=== PATIENT | female | born 1955 | race Caucasian/White ===

== ENCOUNTER → 2016-11-28 | Outpatient (CLI) | payer BC ==
--- NOTE | 2016-11-30 08:09 | MM ---
Reason for exam: screening (asymptomatic). Last mammogram was performed 3 years and 4 months ago. History: Patient is postmenopausal and is nulliparous. Took hormonal contraceptives for 35 years. Physical Findings: A clinical breast exam by your physician is recommended on an annual basis and results should be correlated with mammographic findings. MG Screening Mammo w CAD Bilateral CC and MLO view(s) were taken. Prior study comparison: July 30, 2013, bilateral MG screening mammo w CAD. July 24, 2012, bilateral digital screening mammo w/CAD. The breast tissue is extremely dense which could obscure a lesion on mammography. No significant changes when compared with prior studies. ASSESSMENT: Benign, BI-RAD 2 RECOMMENDATION: Routine screening mammogram of both breasts in 1 year.
== END | disposition home or self-care (01) ==
LOC: RADMAMWWP 09:55
PROVIDERS: ATTEND Family Medicine
DX: Z12.31 Encounter for screening mammogram for malignant neoplasm of breast (principal)

== ENCOUNTER → 2018-01-08 | Outpatient (CLI) | payer BC ==
--- NOTE | 2018-01-10 12:08 | MM ---
Reason for exam: screening (asymptomatic). Last mammogram was performed 1 year and 1 month ago. History: Patient is postmenopausal and is nulliparous. Took hormonal contraceptives for 35 years. Physical Findings: A clinical breast exam by your physician is recommended on an annual basis and results should be correlated with mammographic findings. MG Screening Mammo w CAD Bilateral CC and MLO view(s) were taken. Prior study comparison: November 28, 2016, bilateral MG screening mammo w CAD. July 30, 2013, bilateral MG screening mammo w CAD. The breast tissue is extremely dense which could obscure a lesion on mammography. No suspicious abnormality. No significant changes when compared with prior studies. ASSESSMENT: Negative, BI-RAD 1 RECOMMENDATION: Routine screening mammogram of both breasts in 1 year.
== END ==
LOC: RADMAMWWP 11:10
PROVIDERS: ATTEND Family Medicine
DX: Z12.31 Encounter for screening mammogram for malignant neoplasm of breast (principal)
CPT/HCPCS: 77067

== ENCOUNTER → 2023-03-15 | Outpatient (CLI) | payer MEDICARE ==
--- NOTE | 2023-03-15 12:38 | BD ---
EXAMINATION TYPE: Axial Bone Density DATE OF EXAM: 03/15/2023 CLINICAL HISTORY: 67 years old Female. ICD-10 CODE: M89.8X9 OTHER BONE DISORDERS Height: 61.5 Weight: 152 FRAX RISK QUESTIONS: History of Fracture in Adulthood: no Secondary Osteoporosis: no Current Tobacco Use: yes RISK FACTORS HISTORY OF: Surgery to Spine/Hip(right/left)/Wrist (right/left): no MEDICATIONS: no EXAM MEASUREMENTS: Bone mineral densitometry was performed using the [employer] System. Bone mineral density as measured about the Lumbar spine is: ----- L1-L4(G/cm2): 0.923 T Score Values are as follows: ----- L1: -2.3 ----- L2: -2.6 ----- L3: -2.3 ----- L4: -1.6 ----- L1-L4: -2.1 Z Score Values are as follows: ----- L1: -0.8 ----- L2: -1.1 ----- L3: -0.9 ----- L4: -0.1 ----- L1-L4: -0.7 Bone mineral density has: Decreased -9.2% since study of: 10/17/2005 Bone mineral density about the R hip (g/cm2): 0.754 Bone mineral density about the L hip (g/cm2): 0.763 T Score values are as follows: -----R Neck: -2.7 -----L Neck: -2.7 -----R Total: -2.0 -----L Total: -1.9 Z Score values are as follows: -----R Neck: -1.3 -----L Neck: -1.3 -----R Total: -0.8 -----L Total: -0.8 Bone mineral density has: Decreased -1.6% since study of: 11/06/2012 FRAX%s: The graph provided illustrates a 16.7% chance for a major osteoporotic fx and a 6.5% chance f or the hips probability for fx in 10 years time. IMPRESSION: Osteopenia (T Score between -2.5 and -1). There is slightly increased risk of fracture and the patient may be considered for treatment. Re-Screen 2-5 years. NOTE: T-SCORE=SD OF THE YOUNG ADULT MEAN.
--- NOTE | 2023-03-19 10:09 | MM ---
Reason for Exam: Screening (asymptomatic). Last mammogram was performed 5 year(s) and 3 month(s) ago. Patient History: Menarche at age 13. Patient has no children. Postmenopausal. Hormonal Contraceptives for 35 years until age 31. Risk Values: Aleshia 5 year model risk: 1.9%. NCI Lifetime model risk: 6.7%. Prior Study Comparison: 07/30/2013 Bilateral Screening Mammogram, [facility]. 11/28/2016 Bilateral Screening Mammogram, [facility]. 01/08/2018 Bilateral Screening Mammogram, [facility]. Tissue Density: The breast tissue is heterogeneously dense. This may lower the sensitivity of mammography. Findings: Analyzed By CAD. Asymmetric nodular density upper outer right breast 7 cm from the nipple. Additional views are recommended. No left-sided breast nodules seen. No suspicious calcifications evident. Overall Assessment: Incomplete: need additional imaging evaluation, BI-RAD 0 Management: Diagnostic Mammogram of the right breast. . Patient should continue monthly self-breast exams. A clinical breast exam by your physician is recommended on an annual basis. This exam should not preclude additional follow-up of suspicious palpable abnormalities. Note on Aleshia scores and lifetime risk: 1. A Aleshia score greater than 3% is considered moderate risk. If this is the case, consider specialist referral to assess eligibility for a risk reducing agent. 2. If overall lifetime risk for the development of breast cancer is 20% or higher, the patient may qualify for future screening with alternating mammogram and breast MRI. Electronically signed and approved by: Yuan Barth M.D. Radiologis
== END | disposition home or self-care (01) ==
LOC: RADMAMWWP 09:41
PROVIDERS: ATTEND Family Medicine
DX: Z12.31 Encounter for screening mammogram for malignant neoplasm of breast (principal); M85.88 Other specified disorders of bone density and structure, other site; M89.8X9 Other specified disorders of bone, unspecified site; Z78.0 Asymptomatic menopausal state; M81.0 Age-related osteoporosis without current pathological fracture
CPT/HCPCS: 77067; 77080

== ENCOUNTER → 2023-04-09 | Outpatient (CLI) | payer MEDICARE ==
--- NOTE | 2023-04-09 10:44 | MM ---
Reason for Exam: Additional evaluation requested from abnormal screening. Last screening mammogram was performed less than 1 month ago. Patient History: Menarche at age 13. Patient has no children. Postmenopausal. Hormonal Contraceptives for 35 years until age 31. Risk Values: Aleshia 5 year model risk: 1.9%. NCI Lifetime model risk: 6.7%. Prior Study Comparison: 04/24/2000 Bilateral Special View Mammogram, [facility]. 07/13/2003 Bilateral Screening Mammogram, [facility]. 10/17/2005 Bilateral Screening Mammogram, [facility]. 12/20/2006 Bilateral Screening Mammogram, [facility]. 03/16/2008 Bilateral Screening Mammogram, [facility]. 03/20/2010 Bilateral Screening Mammogram, [facility]. 04/18/2011 Bilateral Screening Mammogram, [facility]. 07/24/2012 Bilateral Screening Mammogram, [facility]. 07/30/2013 Bilateral Screening Mammogram, [facility]. 11/28/2016 Bilateral Screening Mammogram, [facility]. 01/08/2018 Bilateral Screening Mammogram, [facility]. 03/15/2023 Bilateral MG screening mammo w CAD, [facility]. Tissue Density: Right: The breast tissue is heterogeneously dense. This may lower the sensitivity of mammography. Findings: Analyzed By CAD. On additional views, a lucent area of asymmetric density outer aspect of the right breast middle depth becomes less defined. No persisting abnormality identified on the spot 3-D MLO or 3-D lateral views. This may represent superimposition shadow. Further ultrasound evaluation recommended. Overall Assessment: Incomplete: need additional imaging evaluation, BI-RAD 0 Management: Diagnostic Breast Ultrasound of the right breast. Electronically signed and approved by: Bertha Rutherford M.D. Radiologist
--- NOTE | 2023-04-09 11:13 | USB ---
Reason for Exam: Additional evaluation requested from abnormal screening. Patient History: Menarche at age 13. Patient has no children. Postmenopausal. Hormonal Contraceptives for 35 years until age 31. Risk Values: Aleshia 5 year model risk: 1.9%. NCI Lifetime model risk: 6.7%. Technique: Method: Targeted. Prior Study Comparison: 11/28/2016 Bilateral Screening Mammogram, [facility]. 01/08/2018 Bilateral Screening Mammogram, [facility]. 03/15/2023 Bilateral MG screening mammo w CAD, [facility]. Findings: The upper outer quadrant of the right breast, the axilla of the right breast and the retroareolar of the right breast were scanned. Targeted ultrasound upper outer quadrant right breast 9:00 to 12:00 including scanning of the subareolar region and axilla. Patchy dense tissue is present. No solid or cystic lesion or axillary lymphadenopathy. Overall Assessment: Probably benign, BI-RAD 3 Management: Diagnostic Mammogram of the right breast in 6 months. A clinical breast exam by your physician is recommended on an annual basis and results should be correlated with mammographic findings. This exam should not preclude additional follow-up of suspicious palpable abnormalities. Results were given to the patient verbally at the time of exam. Electronically signed and approved by: Bertha Rutherford M.D. Radiologist
== END | disposition home or self-care (01) ==
LOC: RADMAMWWP 10:08
PROVIDERS: ATTEND Family Medicine
DX: R92.8 Other abnormal and inconclusive findings on diagnostic imaging of breast (principal); Z78.0 Asymptomatic menopausal state
CPT/HCPCS: 77065; 76642; G0279; 77061

== ENCOUNTER → 2023-11-27 | Outpatient (CLI) | payer MEDICARE ==
--- NOTE | 2023-11-27 10:27 | MM ---
Reason for Exam: Follow-up at short interval from prior study. Last screening mammogram was performed 8 month(s) ago. Patient History: Menarche at age 13. Patient has no children. Postmenopausal. Hormonal Contraceptives for 35 years until age 31. Risk Values: Aleshia 5 year model risk: 1.9%. NCI Lifetime model risk: 6.4%. Prior Study Comparison: 01/08/2018 Bilateral Screening Mammogram, [facility]. 03/15/2023 Bilateral MG screening mammo w CAD, [facility]. 04/09/2023 Right MG 3D work up w/cad RT, [facility]. Tissue Density: Right: There are scattered areas of fibroglandular density. Findings: Analyzed By CAD. Area of concern/asymmetry compresses out on spot compression imaging. No suspicious masses, calcifications or distortions. Overall Assessment: Benign, BI-RAD 2 Management: Screening Mammogram of both breasts in 6 months. Results were given to the patient verbally at the time of exam. Patient should continue monthly self-breast exams. A clinical breast exam by your physician is recommended on an annual basis. This exam should not preclude additional follow-up of suspicious palpable abnormalities. Note on Aleshia scores and lifetime risk: 1. A Aleshia score greater than 3% is considered moderate risk. If this is the case, consider specialist referral to assess eligibility for a risk reducing agent. 2. If overall lifetime risk for the development of breast cancer is 20% or higher, the patient may qualify for future screening with alternating mammogram and breast MRI. [facility], , 11/27/2023 10:25 AM. Electronically signed and approved by: Kleber Pedersen DO
== END ==
LOC: RADMAMWWP 09:59
PROVIDERS: ATTEND Family Medicine
CPT/HCPCS: 77061; 77065

== ENCOUNTER → 2024-06-25 | Outpatient (CLI) | payer MEDICARE ==
--- NOTE | 2024-06-25 11:24 | MM ---
Reason for Exam: Screening (asymptomatic). Last mammogram was performed 1 year(s) and 3 month(s) ago. Patient History: Menarche at age 13. Patient has no children. Postmenopausal. Hormonal Contraceptives for 35 years until age 31. Risk Values: Aleshia 5 year model risk: 1.9%. NCI Lifetime model risk: 6.4%. Prior Study Comparison: 03/15/2023 Bilateral MG screening mammo w CAD, [facility]. 04/09/2023 Right MG 3D work up w/cad RT, [facility]. 11/27/2023 Right MG 3D diag mammo w/cad RT, [facility]. Tissue Density: The breasts are heterogeneously dense, which may obscure small masses. Findings: Analyzed By CAD. There is no suspicious group of microcalcifications or new suspicious mass in either breast. Overall Assessment: Negative, BI-RAD 1 Management: Screening Mammogram of both breasts in 1 year. Some and by annual bilateral breast ultrasound surveillance in patients with background dense tissue. Patient should continue monthly self-breast exams. A clinical breast exam by your physician is recommended on an annual basis. This exam should not preclude additional follow-up of suspicious palpable abnormalities. Note on Aleshia scores and lifetime risk: 1. A Aleshia score greater than 3% is considered moderate risk. If this is the case, consider specialist referral to assess eligibility for a risk reducing agent. 2. If overall lifetime risk for the development of breast cancer is 20% or higher, the patient may qualify for future screening with alternating mammogram and breast MRI. [facility], , 06/25/2024 11:09 AM. Electronically signed and approved by: Mo Kruse M.D.
== END | disposition home or self-care (01) ==
LOC: RADMAMWWP 10:40
PROVIDERS: ATTEND Family Medicine
DX: Z12.31 Encounter for screening mammogram for malignant neoplasm of breast (principal); R92.333 Mammographic heterogeneous density, bilateral breasts; Z78.0 Asymptomatic menopausal state; Z92.0 Personal history of contraception
CPT/HCPCS: 77063; 77067